=== PATIENT | male | born 1995 | race Two or more races ===

== ENCOUNTER 2017-09-15 15:20 | Emergency (ER) | payer OTHER ==
[~2017-09-15] VITALS: Ht 167.6 cm; Wt 63.0 kg
[2017-09-15] MEDS ORDERED: LORazepam 1MG TABLET PO ONE (16:00)
[2017-09-15 16:07] LABS: BASOPHILS # (AUTO) 0.04 x10^3/uL (0-0.1); BASOPHILS % (AUTO) 1 % (0-1); EOSINOPHILS # (AUTO) 0.04 x10^3/uL (0-0.4); EOSINOPHILS % (AUTO) 1 % (1-7); LYMPHOCYTES # (AUTO) 2.29 x10^3/uL (1-3.4); LYMPHOCYTES % (AUTO) 31 % (22-44); MD NO; MEAN CORPUSCULAR VOLUME 85.3 fL (81-97); MEAN PLATELET VOLUME 8.8 fL (7.4-10.4); MONOCYTES # (AUTO) 0.43 x10^3/uL (0.2-0.8); MONOCYTES % (AUTO) 6 % (2-9); NEUTROPHILS # (AUTO) 4.62 x10^3/uL (1.8-6.8); NEUTROPHILS % (AUTO) 62 % (42-75); PLATELET COUNT 253 x10^3/uL (130-400); RED BLOOD COUNT 5.59 x10^6/uL (4.38-5.82)
[2017-09-15 16:21] LABS: ALBUMIN 4.6 g/dL (3.4-5.0); ANION GAP 10 mmol/L (5-15); CALCIUM 9.4 mg/dL (8.5-10.1); CHLORIDE 105 mmol/L (98-107)
[2017-09-15 16:25] LABS: CREATININE 0.76 mg/dL (0.7-1.3)
[2017-09-15] MEDS ORDERED: LORazepam 1MG TABLET ONE (16:37)
[2017-09-15 17:23] LABS: FREE T4 (FREE THYROXINE) 0.96 ng/dL (0.76-1.46); THYROID STIMULATING HORMONE 0.926 mIU/L (0.358-3.740)
[2017-09-15] MEDS ORDERED: POTASSIUM CHLORIDE 20 MEQ TAB.ER.PRT ONE (17:26)
[2017-09-15] MEDS ORDERED: POTASSIUM CHLORIDE 20 MEQ TAB.ER.PRT PO ONE (17:30)
[2017-09-15 18:46] VITALS: BP 119/75
== END 2017-09-15 15:41 | disposition home or self-care (01) ==
LOC: ED 15:35
DX: F41.1 Generalized anxiety disorder (principal); E87.6 Hypokalemia; R20.2 Paresthesia of skin; J45.909 Unspecified asthma, uncomplicated
CPT/HCPCS: 36415; 80048; 82040; 84439; 84443; 85025; 93005; 99285

== ENCOUNTER 2019-09-09 23:33 | Emergency (ER) | payer OTHER ==
[~2019-09-09] VITALS: Ht 170.2 cm; Wt 70.3 kg
[2019-09-09] MEDS ORDERED: PROMETHAZINE 25 MG/ML, 1ML ONE (23:54)
[2019-09-09] MEDS ORDERED: KETOROLAC 30 MG/1 ML ONE (23:55)
[2019-09-09] MEDS ORDERED: ONDANSETRON 2MG/ML, 2ML ONE (23:55)
[2019-09-10] MEDS ORDERED: KETOROLAC 30 MG/1 ML IVPush ONE
[2019-09-10] MEDS ORDERED: ONDANSETRON 2MG/ML, 2ML IVPush ONE
[2019-09-10] MEDS ORDERED: PROMETHAZINE 25 MG/ML, 1ML IM ONE
[2019-09-10] MEDS ORDERED: SODIUM CHLORIDE FLUSH 10ML SYR IVF ONE
[2019-09-10] MEDS ORDERED: SODIUM CHLORIDE 0.9% 1,000ML IVBOLUS ONE
--- NOTE | 2019-09-10 00:04 | NUR ---
PT MEDICATED PER NOV. POC DISCUSSED. PT AWARE A UA IS NEEDED HOWEVER STATES HE CANNOT PROVIDE ONE AT THIS TIME. URINAL PROVIDED. PT AWARE TO GIVE SAMPLE WHEN ABLE. PT TO RADIOLOGY NOW.
--- NOTE | 2019-09-10 00:09 | NUR ---
PT RETURNED FROM RAD AT THIS TIME. TECH AT BEDSIDE FOR EKG
[2019-09-10 00:16] LABS: BASOPHILS # (AUTO) 0.01 x10^3/uL (0-0.1); BASOPHILS % (AUTO) 0 % (0-1); EOSINOPHILS % (AUTO) 0 % (1-7); LYMPHOCYTES # (AUTO) 0.81 x10^3/uL (1-3.4); LYMPHOCYTES % (AUTO) 7 % (22-44); MD NO; MEAN CORPUSCULAR HEMOGLOBIN 28.9 pg (27.5-34.5); MEAN CORPUSCULAR HGB CONC 33.6 g/dL (33.2-36.2); MEAN CORPUSCULAR VOLUME 86.1 fL (81-97); MEAN PLATELET VOLUME 9.2 fL (7.4-10.4); MONOCYTES # (AUTO) 0.23 x10^3/uL (0.2-0.8); MONOCYTES % (AUTO) 2 % (2-9); NEUTROPHILS # (AUTO) 10.94 x10^3/uL (1.8-6.8); NEUTROPHILS % (AUTO) 91 % (42-75); PLATELET COUNT 263 x10^3/uL (130-400); RED BLOOD COUNT 5.45 x10^6/uL (4.38-5.82); RED CELL DISTRIBUTION WIDTH 13.1 % (9.4-14.8)
[2019-09-10 00:30] LABS: ALANINE AMINOTRANSFERASE 44 U/L (12-78); ALBUMIN 4.6 g/dL (3.4-5.0); ANION GAP 9 mmol/L (5-15); CALCIUM 9.1 mg/dL (8.5-10.1); CHLORIDE 104 mmol/L (98-107); CREATININE 0.89 mg/dL (0.7-1.3)
[2019-09-10 00:32] LABS: ALKALINE PHOSPHATASE 92 U/L (45-117); TOTAL PROTEIN 8.2 g/dL (6.4-8.2)
--- NOTE | 2019-09-10 00:32 | NUR ---
PT STATES HE IS FEELING MUCH BETTER. STILL UNABLE TO PRODUCE URINE SAMPLE. INFORMED.
[2019-09-10] MEDS ORDERED: POTASSIUM CHLORIDE 20 MEQ TAB.ER.PRT ONE (00:33)
--- NOTE | 2019-09-10 00:37 | NUR ---
PT TOLERATING PO MEDS WITH FLUIDS. PT AND FRIEND DENY FURTHER NEEDS AT THIS TIME.
[2019-09-10] MEDS ORDERED: MAALOX/HYOSCYAMINE/LIDOCAINE 45 ML BTL ONE (00:49)
[2019-09-10] MEDS ORDERED: POTASSIUM CHLORIDE 20 MEQ TAB.ER.PRT PO ONE (01:00)
[2019-09-10] MEDS ORDERED: MAALOX/HYOSCYAMINE/LIDOCAINE 45 ML BTL PO ONE (01:00)
[2019-09-10 01:01] VITALS: BP 129/74
== END 2019-09-10 01:03 | disposition home or self-care (01) ==
LOC: ED 09-10 00:53
DX: K29.20 Alcoholic gastritis without bleeding (principal); R11.2 Nausea with vomiting, unspecified; E86.0 Dehydration
CPT/HCPCS: 36415; 74022; 80053; 83690; 85025; 93005; 96361; 96372; 96374; 96375; 99284; J1885; J2405; J2550; J7030

== ENCOUNTER 2020-02-21 23:26 | Emergency (ER) | payer OTHER ==
[~2020-02-21] VITALS: Ht 170.2 cm; Wt 71.9 kg
[2020-02-21] MEDS ORDERED: ONDANSETRON ODT 4 MG ONE (23:36)
--- NOTE | 2020-02-21 23:39 | NUR ---
Pt having nausea after attending a graduation [employer]. Pt reports he wants to throw up but has nothing left. Pt reports he has felt sick all day. Pt very anxious. Has Hx of anxiety. Pt denies consuming new or spoiled foods. Pt has no trauma. Pt given 4mg zofran per ed protocol for nausea.
--- NOTE | 2020-02-21 23:46 | NUR ---
Pt placed on NR mask due to anxiety and hyperventilation. Report to Radha GARRETT.
--- NOTE | 2020-02-21 23:50 | NUR ---
pt.'s partner wants updates when possible @ .
[2020-02-21] MEDS ORDERED: PANTOPRAZOLE 20MG TABLET ONE (23:54)
[2020-02-21] MEDS ORDERED: LORazepam 1MG TABLET ONE (23:54)
[2020-02-22] MEDS ORDERED: PANTOPRAZOLE 20MG TABLET PO ONE
[2020-02-22] MEDS ORDERED: LORazepam 1MG TABLET PO ONE
[2020-02-22] MEDS ORDERED: ONDANSETRON ODT 4 MG PO ONE
--- NOTE | 2020-02-22 | NUR ---
Report received and care assumed. Pt continues with nausea and anxiety. States this happens every time he drinks too much. Pt medicated per MAR. VSS. Pt's friend able to come to bedside upon return to department. Warm blanket given. Call light in reach.
--- NOTE | 2020-02-22 00:32 | NUR ---
Pt sleeping but awakes easily. States nausea is improving. Pt placed on 2L NC s/t O2 in 80's after meds. S/O at bedside and updated to POC. Call light in reach.
[2020-02-22 00:59] LABS: BASOPHILS # (AUTO) 0.01 x10^3/uL (0-0.1); BASOPHILS % (AUTO) 0 % (0-1); EOSINOPHILS % (AUTO) 0 % (1-7); LYMPHOCYTES # (AUTO) 0.79 x10^3/uL (1-3.4); LYMPHOCYTES % (AUTO) 8 % (22-44); MD NO; MEAN CORPUSCULAR HEMOGLOBIN 28.7 pg (27.5-34.5); MEAN CORPUSCULAR HGB CONC 33.6 g/dL (33.2-36.2); MEAN CORPUSCULAR VOLUME 85.3 fL (81-97); MEAN PLATELET VOLUME 9.3 fL (7.4-10.4); MONOCYTES % (AUTO) 4 % (2-9); NEUTROPHILS # (AUTO) 8.74 x10^3/uL (1.8-6.8); NEUTROPHILS % (AUTO) 88 % (42-75); PLATELET COUNT 245 x10^3/uL (130-400); RED BLOOD COUNT 5.23 x10^6/uL (4.38-5.82); RED CELL DISTRIBUTION WIDTH 13.1 % (9.4-14.8)
--- NOTE | 2020-02-22 01:01 | NUR ---
Pt attempting PO challenge. Awaiting lab results. Pt aware of POC. Call light in reach.
[2020-02-22 01:05] LABS: ALANINE AMINOTRANSFERASE 78 U/L (12-78); ALBUMIN 4.4 g/dL (3.4-5.0); ANION GAP 5 mmol/L (5-15); CALCIUM 8.8 mg/dL (8.5-10.1); CHLORIDE 106 mmol/L (98-107); CREATININE 0.92 mg/dL (0.7-1.3)
[2020-02-22 01:07] LABS: ALKALINE PHOSPHATASE 102 U/L (45-117); BILIRUBIN,TOTAL 0.8 mg/dL (0.2-1.0); TOTAL PROTEIN 7.7 g/dL (6.4-8.2)
[2020-02-22 01:45] VITALS: BP 132/86
== END 2020-02-22 01:48 | disposition home or self-care (01) ==
LOC: ED 02-22 01:01
DX: R11.2 Nausea with vomiting, unspecified (principal); R10.13 Epigastric pain; F41.1 Generalized anxiety disorder; F17.200 Nicotine dependence, unspecified, uncomplicated
CPT/HCPCS: 36415; 80053; 83690; 85025; 99284; Q0162